=== PATIENT | male | born 1975 | race Caucasian/White ===

== ENCOUNTER 2022-01-29 21:49 | Emergency (ER) | payer MEDICAID, SELFPAY ==
[2022-01-29 21:50] VITALS: BP 165/73; PULSE 65; RESP 18; TEMP 36.7; O2SAT 98; BMI 20.9
--- NOTE | 2022-01-29 21:56 | XRR_ITS ---
PROCEDURE INFORMATION: Exam: XR Chest Exam date and time: 01/29/2022 11:19 PM Age: 46 years old Clinical indication: Shortness of breath; Patient HX: C/O SOB; Additional info: Dyspnea TECHNIQUE: Imaging protocol: Radiologic exam of the chest. Views: 1 view. COMPARISON: No relevant prior studies available. FINDINGS: Lungs: Unremarkable. No consolidation. Pleural spaces: Unremarkable. No pleural effusion. No pneumothorax. Heart/Mediastinum: Unremarkable. No cardiomegaly. Bones/joints: Unremarkable. XR/XR chest 1V portable [id number] IMPRESSION: No acute findings.
--- NOTE | 2022-01-29 21:56 | ECG_ITS ---
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 Measurements Intervals [place] Rate: 64 P: 76 MS: 174 QRS: 73 QRSD: 76 T: 66 QT: 373 QTc: 386 Interpretive Statements SINUS RHYTHM No previous ECG available for comparison Electronically Signed On 01-30-2022 18:10:28 CDT by Bayron Magana M.D. [id number] f
--- NOTE | 2022-01-29 22:18 | W.ED.SOB ---
HPI - SOB/Dyspnea General: Chief Complaint: Shortness of Breath/Dyspnea Stated Complaint: sob,high bp Time Seen by Provider: 01/29/22 22:02 Source: patient Mode of arrival: ambulatory Limitations: no limitations History of Present Illness: HPI Narrative: 46-year-old male states he has a history of hypertension states that that he has had some pain in the left side of his chest was seen states some numbness feeling in his arm he had some dyspnea to his recent COVID 2 weeks ago continue have a slight cough. He states he only takes his metoprolol as needed and his blood pressure was running high today and he took metoprolol. Denies any worsening proved factors states his symptoms have resolved currently. Associated symptoms: Reports chest pain; Deny abdominal pain, fever(s), nausea or vomiting Review of Systems Const: Denies: fever(s), chills, body aches or change in appetite Eyes: Denies: blurry vision or eye discomfort ENMT: Denies: throat pain or dental pain Card: Reports: chest pain Resp: Reports: dyspnea GI: Denies: abdominal pain, nausea, vomiting or diarrhea : Denies: dysuria Musc: Denies: neck pain or back pain Skin/Breast: Denies: rash Neuro: Denies: headache(s) Psych: Denies: depression [place]/Lymph: Denies: easy bruising All/Imm: Denies: urticaria PFSH ED PFSH: Medical History (Updated 01/30/22 @ 01:33 by Jett Melara MD) Hypertension Social History (Updated 01/29/22 @ 22:18 by Jett Melara MD) Substance/Drug Use: never Physical Exam Const: COMMON NORMALS: no acute distress, patient oriented x3 and healthy appearing HENMT: COMMON NORMALS: normocephalic and atraumatic HEAD & SCALP: normocephalic and atraumatic Eye: COMMON NORMALS: Equal, round and reactive pupils present and EOMs intact bilaterally PUPIL: Yes Equal, round and reactive pupils present Neck/C-Spine: COMMON NORMALS: full ROM and supple Chest: COMMONS NORMALS: normal inspection of the chest and normal palpation of entire chest wall Resp: COMMON NORMALS: normal respiratory effort, No retractions, No use of accessory muscles and clear to auscultation bilaterally AUSCULTATION: clear to auscultation bilaterally Cardio: COMMON NORMALS: regular rate, regular rhythm and No murmurs present (Cardio) RATE: regular rate RHYTHM: regular rhythm GI: COMMON NORMALS: Normal to inspection, nondistended, normoactive bowel sounds present, Soft to palpation, non-tender and no masses PALPATION: Yes Soft to palpation Extremity: COMMON NORMALS: normal to inspection and full ROM Neuro: COMMON NORMALS: patient oriented x3, moves all extremities and no focal motor deficits Psych: COMMON NORMALS: mental status grossly normal, Normal thought process present and cooperative THOUGHT PROCESS: Normal thought process present Skin: COMMON NORMALS: no rashes or lesions noted and no wounds GENERAL SKIN EXAM: no rashes or lesions noted Course Vital Signs: Vital signs: Vital Signs Temperature 98.1 F 01/29/22 21:50 Pulse Rate 56 L 01/30/22 01:25 Respiratory Rate 19 H 01/30/22 01:19 Blood Pressure 124/80 01/30/22 01:25 Pulse Oximetry 96 01/30/22 01:25 Oxygen Delivery Me thod 01/30/22 01:19 MDM - SOB/Dyspnea Medical Decision Making Patient presents here with chest pain along with some dyspnea that is atypical in nature has been well-appearing here in no distress no pain here troponins D-dimer negative he is to follow-up with PCP in 2 to 4 days return if worsening he understands agrees to plan. Lab Data : 01/29/22 22:20 01/29/22 22:20 Labs/Radiology: Radiology Impressions Chest X-Ray 01/29/22 21:56 IMPRESSION: No acute findings. Laboratory Results WBC 8.5 10^3/uL (4.0-10.0) 01/29/22 22:20 RBC 4.95 10^6/uL (4.1-5.3) 01/29/22 22:20 Hgb 14.6 g/dL (11.7-16.6) 01/29/22 22:20 Hct 43.2 % (42.0-52.0) 01/29/22 22:20 MCV 87.3 fl (80-94) 01/29/22 22:20 MCH 29.5 pg (28.0-34.0) 01/29/22 22:20 MCHC 33.8 g/dL (30.0-36.0) 01/29/22 22:20 RDW 12.4 % (12.1-15.1) 01/29/22 22:20 Plt Count 175 10^3/cmm (130-400) 01/29/22 22:20 MPV 11.2 fL (7.4-10.4) H 01/29/22 22:20 Neut % (Auto) 74.8 % 01/29/22 22:20 Lymph % (Auto) 15.1 % 01/29/22 22:20 [place] % (Auto) 6.4 % 01/29/22 22:20 Eos % (Auto) 2.6 % 01/29/22 22:20 Baso % (Auto) 0.7 % 01/29/22 22:20 Neut # (Auto) 6.36 10^3/uL (1.8-7.7) 01/29/22 22:20 Lymph # (Auto) 1.3 10^3/uL (0.8-4.8) 01/29/22 22:20 [place] # (Auto) 0.5 10^3/uL (0.2-0.9) 01/29/22 22:20 Eos # (Auto) 0.2 10^3/uL (0.0-0.8) 01/29/22 22:20 Baso # (Auto) 0.1 10^3/uL (0.0-0.1) 01/29/22 22:20 Nucleated RBC % (auto) 0 % 01/29/22 22:20 Nucleated RBCs # 0.0 /100WBC 01/29/22 22:20 D-Dimer 0.37 ug/mIFEU (0-0.59) 01/29/22 22:20 Sodium 138 mmol/L (136-145) 01/29/22 22:20 Potassium 3.7 mmol/L (3.5-5.1) 01/29/22 22:20 Chloride 104 mmol/L (98-107) 01/29/22 22:20 Carbon Dioxide 25 mmol/L (22-29) 01/29/22 22:20 Anion Gap 12.7 (5-19) 01/29/22 22:20 BUN 9 mg/dL (6-20) 01/29/22 22:20 Creatinine 0.9 mg/dL (0.7-1.2) 09/23/22 22:20 GFR Calculation 90.1 mL/min (90-130) 01/29/22 22:20 Glucose 110 mg/dL (65-115) 01/29/22 22:20 Calculated Osmolality 285 mOsm/kg (285-295) 01/29/22 22:20 Calcium 9.4 mg/dL (8.5-10.5) 01/29/22 22:20 Total Bilirubin 0.4 mg/dL (0.15-1.2) 01/29/22 22:20 AST 17 U/L (0-40) 01/29/22 22:20 ALT 14 U/L (0-41) 01/29/22 22:20 Alkaline Phosphatase 82 U/L (40-130) 01/29/22 22:20 Troponin T Baseline 6 ng/L (0-15) 01/29/22 22:20 Troponin T 120 Minute 6.41 ng/L (0-15) 01/30/22 01:02 Delta Troponin T 0.41 ABS# (0-10) 01/30/22 01:02 NT-Pro-B Natriuret Pep 159 pg/mL (0-125) H 01/29/22 22:20 Total Protein 8.0 g/dL (6.6-8.7) 01/29/22 22:20 Albumin 4.1 g/dL (3.5-5.2) 01/29/22 22:20 Globulin 3.9 g/dL (1.3-4.6) 01/29/22 22:20 SARS-CoV-2 Ag (Rapid) Negative (Negative) 01/29/22 22:49 EKG Data EKG 1: I personally reviewed and interpreted this EKG as follows: EKG Interpretation Date: 01/29/22 EKG interpretation time: 22:31 Interpretation: nsr hr [address] or t wave abnormalities qrs 76 qtc 382 EKG 2: I personally reviewed and interpreted this EKG as follows: EKG Interpretation Date: 01/29/22 EKG interpretation time: 23:41 Interpretation: nsr hr [address] or t wave abnormalities qrs 76 qtc 374 Discharge Plan Discharge Patient Disposition: Home Clinical Impression: Chest pain Discharge Orders: Discharge ED (Routine); Ordered 01/30/22 Ordered By: Jett Melara Discharge Diet: Advance as tolerated Discharge Activity: Resume usual activity Patient Instructions: Chest Pain (ED) Coding Level of Care Code ED Director Of Patient Safety for Chg Fwd Exam Comprehensive
[2022-01-29 22:20] VITALS: BP 137/77; PULSE 60; RESP 16; O2SAT 96; O2SAT 97
--- NOTE | 2022-01-29 22:20 | PC.NURSE ---
assumed care of patient at this time.
[2022-01-29 22:30] LABS: Basophils # 0.1 10^3/uL (0.0-0.1); Basophils % 0.7 %; Eosinophils # 0.2 10^3/uL (0.0-0.8); Eosinophils % 2.6 %; Hematocrit 43.2 % (42.0-52.0); Hemoglobin 14.6 g/dL (11.7-16.6); Lymphocytes # 1.3 10^3/uL (0.8-4.8); Lymphocytes % 15.1 %; Mean Corpuscular HGB Conc 33.8 g/dL (30.0-36.0); Mean Corpuscular Hemoglobin 29.5 pg (28.0-34.0); Mean Corpuscular Volume 87.3 fl (80-94); Mean Platelet Volume 11.2 fL (7.4-10.4); Monocytes # 0.5 10^3/uL (0.2-0.9); Monocytes % 6.4 %; Neutrophils # 6.36 10^3/uL (1.8-7.7); Neutrophils % 74.8 %; Nucleated Red Blood Cells % 0 %; Platelet Count 175 10^3/cmm (130-400); Red Blood Count 4.95 10^6/uL (4.1-5.3); Red Cell Distribution Width 12.4 % (12.1-15.1); White Blood Count 8.5 10^3/uL (4.0-10.0)
[2022-01-29 22:43] LABS: D Dimer 0.37 ug/mIFEU (0-0.59)
[2022-01-29 22:51] LABS: Troponin(5th) Baseline 6 ng/L (0-15)
[2022-01-29 23:01] LABS: Alanine Aminotransferase 14 U/L (0-41); Albumin Level 4.1 g/dL (3.5-5.2); Alkaline Phosphatase 82 U/L (40-130); Anion Gap 12.7 (5-19); Aspartate Amino Transferase 17 U/L (0-40); Blood Urea Nitrogen 9 mg/dL (6-20); Calcium 9.4 mg/dL (8.5-10.5); Carbon Dioxide 25 mmol/L (22-29); Chloride 104 mmol/L (98-107); Globulin 3.9 g/dL (1.3-4.6); Glomerular Filtration Rate 90.1 mL/min (90-130); Glucose 110 mg/dL (65-115); NT Pro B Type Natriuretic Pept 159 pg/mL (0-125); Osmolality Calculated 285 mOsm/kg (285-295); Potassium 3.7 mmol/L (3.5-5.1); Sodium 138 mmol/L (136-145); Total Bilirubin 0.4 mg/dL (0.15-1.2)
[2022-01-29 23:19] LABS: SARS Covid-2 Antigen Negative (Negative)
--- NOTE | 2022-01-29 23:56 | ECG_ITS ---
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 Measurements Intervals [place] Rate: 61 P: 76 OR: 181 QRS: 74 QRSD: 76 T: 65 QT: 371 QTc: 376 Interpretive Statements SINUS RHYTHM WITH SINUS ARRHYTHMIA Compared to ECG 01/29/2022 22:31:39 No significant changes Electronically Signed On 01-30-2022 18:15:30 CDT by Bayron Magana M.D. [email or web address] [email or web address].[employer]/store/OM/[id number]
[2022-01-30 01:19] VITALS: BP 135/78; PULSE 58; RESP 19; O2SAT 95
[2022-01-30 01:25] VITALS: BP 124/80; PULSE 56; O2SAT 96
[2022-01-30 01:29] LABS: Troponin 5 2HR 6.41 ng/L (0-15)
[2022-01-30 01:33] LABS: Troponin 5 2HR Delta 0.41 ABS# (0-10)
[2022-01-30 01:44] VITALS: BP 149/80; PULSE 56; O2SAT 97
== END 2022-01-30 01:46 | disposition home or self-care (01) ==
PROVIDERS: Nurse Practitioner Family; Emergency Provider Emergency Medicine
DX: R07.9 Chest pain, unspecified (principal); I10 Essential (primary) hypertension
CPT/HCPCS: 71045; 80053; 83880; 84484; 85025; 85378; 87426; 93005; 99285

== ENCOUNTER 2022-07-23 12:08 | Outpatient (CLI) | payer MEDICAID, SELFPAY ==
[2022-07-23 12:07] VITALS: BMI 22.3
--- NOTE | 2022-07-23 12:12 | ECG_ITS ---
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 Interpretive Statements NAME OF STUDY: TREADMILL STRESS TEST INDICATION: Chest Pain, PROCEDURE: At the baseline, the patient's blood pressure was 110/70 with a heart rate of 78. The baseline electrocardiogram showed normal sinus rhythm with normal ST-Ts.. The patient exercised for 8 minutes on a standard Baljit protocol. Patient attained a maximum heart rate of 149 beats per minute(86% of the maximum predicted heart rate) with a blood pressure at the peak exercise of 140/88 mm Hg. The EKG at the peak exercise revealed no significant changes. Patient did not have any chest pain or any significant cardiac arrhythmias with the exercise During the recovery phase, there were no new changes. Blood pressure at the end of the recovery phase was 127/79 mm Hg with a heart rate of 87 per minute. CONCLUSION: 1. Normal EKG response to treadmill exercise 2. No exercise-induced chest pain or cardiac arrhythmia 3. Fair exercise tolerance, attained a maximum of 10.2 METs Electronically Signed On 07-23-2022 16:03:20 CDT by Bayron Magana M.D. [id number]
[2022-07-23 12:36] VITALS: BP 127/79; PULSE 80
== END 2022-07-23 12:09 | disposition home or self-care (01) ==
PROVIDERS: PCP Nurse Practitioner Family; Visit Provider Nurse Practitioner Family
DX: R07.9 Chest pain, unspecified (principal)
CPT/HCPCS: 93017

== ENCOUNTER 2022-12-11 10:23 | Emergency (ER) | payer MEDICAID, SELFPAY ==
[2022-12-11 10:32] VITALS: BP 180/90; PULSE 69; RESP 18; TEMP 36.8; O2SAT 97; BMI 22.3
--- NOTE | 2022-12-11 10:36 | ED_ITS ---
HPI - GI Bleed General: Chief complaint: GI Bleed Stated complaint: stomach pain, states blood in stool Time Seen by Provider: 12/11/22 10:36 History of Present Illness: Mr. Doll is a 47-year-old gentleman with history of hypertension presents to the emergency department for concern over blood in stool. He reports one episode approximately 6 months ago however this morning woke up and had a normal bowel movement though immediately when he sat down and started trying have a matthew wel movement he had blood. Subsequently he did see blood mixed in with the stool and a little bit of blood which had been improving when wiping. Denies associated abdominal pain or rectal pain. He does report may be mild generalized malaise though no specific other symptoms. No other specific ch anges in health, exacerbating, or alleviating factors identified. No other unexplained bleeding or bruising. Onset (ago): hour(s) Severity: mild Associated symptoms: Reports malaise and other Review of Systems General: Reports: 10 or more systems reviewed and unremarkable except in HPI and below Const: Reports: malaise PFSH ED PFSH: Medical History Chest pain Hypertension Social History Smoking and tobacco status: never smoked Substance/Drug Use: never Physical Exam Const: COMMON NORMALS: alert GENERAL APPEARANCE: cooperative and well developed HENMT: COMMON NORMALS: normocephalic and atraumatic HEAD & SCALP: normocephalic and atraumatic Eye: COMMON NORMALS: conjunctivae normal CONJUNCTIVA: Yes conjunctivae normal SCLERA: sclerae normal Neck/C-Spine: COMMON NORMALS: supple GENERAL: Yes trachea midline Resp: COMMON NORMALS: normal respiratory effort EFFORT & INSPECTION: Yes able to speak in complete sentences Cardio: COMMON NORMALS: regular rate and regular rhythm RATE: regular rate RHYTHM: regular rhythm GI: COMMON NORMALS: Soft to palpation PALPATION: Yes Soft to palpation and No Tenderness to palpation present (GI) Extremity: GENERAL: Yes normal exam except as noted and No edema Neuro: COMMON NORMALS: moves all extremities SENSORIUM/ORIENTATION: Yes alert and No Orientation impaired Psych: COMMON NORMALS: mental status grossly normal and Normal thought process present THOUGHT PROCESS: Normal thought process present Course Vital Signs: Vital signs: Vital Signs Temperature 98.2 F 08/05/23 10:32 Pulse Rate 82 12/11/22 12:32 Respiratory Rate 16 12/11/22 12:32 Blood Pressure 180/90 12/11/22 10:32 Pulse Oximetry 97 12/11/22 10:32 Oxygen Delivery Me thod Room Air 12/11/22 10:32 MDM - GI Bleed Medical Decision Making 47-year-old gentleman presenting with abdominal pain and bloody stool. Exam. No evidence of peritonitis on exam. Vitals are satisfactory. 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 Labs with mild hemoconcentration. No significant metabolic derangement. Abdomen/pelvis CT negative for active hemorrhage or obvious cause of symptoms. Plan for outpatient follow-up with consideration of endoscopy. The results of ED evaluation were discussed with the patient including prescriptions and/or symptomatic cares (if applicable) including appropriate and responsible use, followup plan, and return precautions. The patient verbalized understanding and felt safe for discharge. Medical Records I reviewed the patient's medical records. Lab Data I reviewed the patient's lab results. 12/11/22 11:00 12/11/22 11:00 Radiology Impressions Abdomen/Pelvis CT 12/11/22 11:08 IMPRESSION: No acute findings. Laboratory Results WBC 10.2 10^3/uL (4.0-10.0) H 12/11/22 11:00 RBC 5.61 10^6/uL (4.1-5.3) H 12/11/22 11:00 Hgb 16.5 g/dL (11.7-16.6) 12/11/22 11:00 Hct 48.0 % (42.0-52.0) 12/11/22 11:00 MCV 85.6 fl (80-94) 12/11/22 11:00 MCH 29.4 pg (28.0-34.0) 12/11/22 11:00 MCHC 34.4 g/dL (30.0-36.0) 12/11/22 11:00 RDW 12.2 % (12.1-15.1) 12/11/22 11:00 Plt Count 147 10^3/cmm (130-400) 12/11/22 11:00 MPV 11.5 fL (7.4-10.4) H 12/11/22 11:00 Neut % (Auto) 82.8 % 12/11/22 11:00 Lymph % (Auto) 11.1 % 12/11/22 11:00 [place] % (Auto) 4.5 % 12/11/22 11:00 Eos % (Auto) 0.7 % 12/11/22 11:00 Baso % (Auto) 0.3 % 12/11/22 11:00 Neut # (Auto) 8.46 10^3/uL (1.8-7.7) H 12/11/22 11:00 Lymph # (Auto) 1.1 10^3/uL (0.8-4.8) 12/11/22 11:00 [place] # (Auto) 0.5 10^3/uL (0.2-0.9) 12/11/22 11:00 Eos # (Auto) 0.1 10^3/uL (0.0-0.8) 12/11/22 11:00 Baso # (Auto) 0.0 10^3/uL (0.0-0.1) 12/11/22 11:00 Nucleated RBC % (auto) 0 % 12/11/22 11:00 Nucleated RBCs # 0.0 /100WBC 12/11/22 11:00 PT 13.10 SECONDS (12.1-14.9) 12/11/22 11:00 INR 0.96 (0.8-1.2) 12/11/22 11:00 Sodium 135 mmol/L (136-145) L 12/11/22 11:00 Potassium 4.3 mmol/L (3.5-5.1) 12/11/22 11:00 Chloride 101 mmol/L (98-107) 12/11/22 11:00 Carbon Dioxide 22 mmol/L (22-29) 12/11/22 11:00 Anion Gap 16.3 (5-19) 12/11/22 11:00 BUN 12 mg/dL (6-20) 12/11/22 11:00 Creatinine 1.0 mg/dL (0.7-1.2) 12/11/22 11:00 GFR Calculation 79.4 mL/min (90-130) L 12/11/22 11:00 Glucose 133 mg/dL (65-115) H 12/11/22 11:00 Calculated Osmolality 282 mOsm/kg (285-295) L 12/11/22 11:00 Calcium 9.1 mg/dL (8.5-10.5) 12/11/22 11:00 Total Bilirubin 0.6 mg/dL (0.15-1.2) 12/11/22 11:00 AST 17 U/L (0-40) 12/11/22 11:00 ALT 13 U/L (0-41) 12/11/22 11:00 Alkaline Phosphatase 70 U/L (40-130) 12/11/22 11:00 Total Protein 7.1 g/dL (6.6-8.7) 12/11/22 11:00 Albumin 4.3 g/dL (3.5-5.2) 12/11/22 11:00 Globulin 2.8 g/dL (1.3-4.6) 12/11/22 11:00 Discharge Plan Discharge Patient Disposition: Home Clinical Impression: GI bleed, Internal hemorrhoid Condition: Stable Prescriptions: New Protonix 40 mg tablet,delayed release (DR/EC) 40 mg PO BID 14 Days Qty: 28 0RF No Action metoprolol succinate 25 mg tablet extended release 24 hr 12.5 mg PO BID Qty: 90 3RF Discharge Orders: Discharge ED (Routine); Ordered 12/11/22 Ordered By: Nasir Caraballo Referrals: Arnoldo Henderson FNP [Primary Care Provider] - Discharge Diet: Advance as tolerated and Clear Liquid Discharge Activity: Increase activity as tolerated Patient Instructions: Gastrointestinal Bleeding (ED), Hemorrhoids (ED), Diet for Stomach Ulcers and Gastritis (ED) Activity Restrictions/Additional Instructions: Thank you for visiting the emergency department. You were seen and evaluated for GI bleed. The exact cause of your symptoms is unclear. You do have internal hemorrhoids which may be related to however other causes do need further outpatient evaluation. I will message case management for follow-up. I will prescribe Protonix. Also follow-up with a primary care provider. Return for lightheadedness or fainting, worsening chest pain or shortness of breath, inability to tolerate oral intake, significant abdominal pain, or any thing else that you are concerned about and feel needs emergency department evaluation. Coding Level of Care Code ED Hyperbaric Welder Diver for Javier Katz
--- NOTE | 2022-12-11 11:08 | CTR_ITS ---
PROCEDURE INFORMATION: Exam: CT Abdomen And Pelvis With Contrast Exam date and time: 12/11/2022 11:24 AM Age: 47 years old Clinical indication: Abdominal pain; Periumbilical; Additional info: Gi bleed TECHNIQUE: Imaging protocol: Computed tomography of the abdomen and pelvis with contrast. Radiation optimization: All CT scans at this facility use at least one of these dose optimization techniques: automated exposure control; mA and/or kV adjustment per patient size (includes targeted exams where dose is matched to clinical indication); or iterative reconstruction. Contrast material: OMNI 350; Contrast volume: 100 ml; Contrast route: INTRAVENOUS (IV); REPORTING DATA: Count of CT and Cardiac NM exams in prior 12 months: This patient has received 0 known CTs and 0 known cardiac nuclear medicine studies in the 12 months prior to the current study. COMPARISON: CR XR chest 1V portable [id number] 01/29/2022 11:19 PM RADIATION DOSE METRICS: Total DLP (mGy-cm): 381.83 FINDINGS: Lungs: Mild bibasilar linear atelectasis versus scarring. Calcified left lower lobe granuloma. Liver: Subcentimeter left hepatic hypodensity too small to characterize. Otherwise unremarkable. Gallbladder and bile ducts: Normal. No calcified stones. No ductal dilation. Pancreas: Normal without ductal dilatation. Spleen: Normal. Adrenal glands: Normal. No mass. Kidneys and ureters: Normal. No hydronephrosis. Stomach and bowel: No dilatation. No mucosal thickening. Appendix: Normal. Intraperitoneal space: No free air, free fluid, or well-organized fluid collection. Vasculature: Mild aortic atherosclerosis without aneurysm. Lymph nodes: No enlarged lymph nodes. Urinary bladder: Urinary bladder is unremarkable. Reproductive: Unremarkable as visualized. Bones/joints: No acute fracture. Mild degenerative changes along the spine and sacroiliac joints. Soft tissues: Unremarkable. CT/CT abdomen pelvis w con* [id number] IMPRESSION: No acute findings.
[2022-12-11 11:14] LABS: Basophils % 0.3 %; Eosinophils # 0.1 10^3/uL (0.0-0.8); Eosinophils % 0.7 %; Hemoglobin 16.5 g/dL (11.7-16.6); Lymphocytes # 1.1 10^3/uL (0.8-4.8); Lymphocytes % 11.1 %; Mean Corpuscular HGB Conc 34.4 g/dL (30.0-36.0); Mean Corpuscular Hemoglobin 29.4 pg (28.0-34.0); Mean Corpuscular Volume 85.6 fl (80-94); Mean Platelet Volume 11.5 fL (7.4-10.4); Monocytes # 0.5 10^3/uL (0.2-0.9); Monocytes % 4.5 %; Neutrophils # 8.46 10^3/uL (1.8-7.7); Neutrophils % 82.8 %; Nucleated Red Blood Cells % 0 %; Platelet Count 147 10^3/cmm (130-400); Red Blood Count 5.61 10^6/uL (4.1-5.3); Red Cell Distribution Width 12.2 % (12.1-15.1); White Blood Count 10.2 10^3/uL (4.0-10.0)
[2022-12-11 11:17] LABS: INR 0.96 (0.8-1.2)
[2022-12-11] MEDS: iohexol 350 mg/mL 500 mL Btl (per mL) IV (11:26)
[2022-12-11 11:27] LABS: Alanine Aminotransferase 13 U/L (0-41); Albumin Level 4.3 g/dL (3.5-5.2); Alkaline Phosphatase 70 U/L (40-130); Anion Gap 16.3 (5-19); Aspartate Amino Transferase 17 U/L (0-40); Blood Urea Nitrogen 12 mg/dL (6-20); Calcium 9.1 mg/dL (8.5-10.5); Carbon Dioxide 22 mmol/L (22-29); Chloride 101 mmol/L (98-107); Globulin 2.8 g/dL (1.3-4.6); Glomerular Filtration Rate 79.4 mL/min (90-130); Glucose 133 mg/dL (65-115); Osmolality Calculated 282 mOsm/kg (285-295); Potassium 4.3 mmol/L (3.5-5.1); Sodium 135 mmol/L (136-145); Total Bilirubin 0.6 mg/dL (0.15-1.2); Total Protein 7.1 g/dL (6.6-8.7)
[2022-12-11 12:32] VITALS: PULSE 82; RESP 16
--- NOTE | 2022-12-13 09:59 | DCPLANNER ---
Addendum entered by Josie Connolly 12/23/22 09:49: Patient attended appointment scheduled with general surgery Addendum entered by Josie Connolly 12/15/22 12:23: Patient has a follow up appointment scheduled for Tuesday, December 20, 2022 at 9:[address] Vale at general surgery. Original Note: integrated marketing manager had message to schedule a follow up appointment for patient with general surgery. integrated marketing manager sent patients information to the front office staff at general surgery. Patients information will be printed and reviewed. Clinic will call patient with appointment information.
== END 2022-12-11 12:33 | disposition home or self-care (01) ==
PROVIDERS: Emergency Provider Emergency Medicine; PCP Nurse Practitioner Family
DX: K92.2 Gastrointestinal hemorrhage, unspecified (principal); K64.8 Other hemorrhoids; I10 Essential (primary) hypertension
CPT/HCPCS: 74177; 80053; 85025; 85610; 99285; Q9967

== ENCOUNTER → 2024-02-28 16:45 | Outpatient (BNVA) | payer MEDICAID, SELFPAY | PROVIDERS: PCP Nurse Practitioner Family; Visit Provider Nurse Practitioner Family | DX: Z12.5 Encounter for screening for malignant neoplasm of prostate (principal); I10 Essential (primary) hypertension; Z79.899 Other long term (current) drug therapy | CPT/HCPCS: 80053; 80061; 81003; 83036; 84443; 85025; G0103 ==

== ENCOUNTER → 2025-03-05 15:56 | Outpatient (BNVA) | payer MEDICAID, SELFPAY | PROVIDERS: PCP Nurse Practitioner Family; Visit Provider Nurse Practitioner Family | DX: Z12.5 Encounter for screening for malignant neoplasm of prostate (principal); Z79.899 Other long term (current) drug therapy; I10 Essential (primary) hypertension; E55.9 Vitamin D deficiency, unspecified | CPT/HCPCS: 80053; 80061; 81003; 82306; 83036; 84443; 85025 ==